=== PATIENT | female | born 1955 | race Caucasian/White ===

== ENCOUNTER 2024-08-06 18:24 | Emergency (ER) | payer MEDICARE, OTHER, SELFPAY ==
[2024-08-06 18:31] VITALS: BP 142/79
[2024-08-06 18:58] LABS: % Basophils 0.4 % (0-2); % Eosinophils 1.1 % (0-6); % Immature Granulocytes 0.2 % (0-0.5); % Lymphocytes 38.3 % (20.5-51.1); % Monocytes 7.7 % (1.7-9.3); % Neutrophils 52.3 % (42.2-75.2); Absolute Eosinophils 0.1 10^3/uL (0-0.7); Absolute Lymphocytes 2.1 10^3/uL (1.2-3.4); Absolute Monocytes 0.4 10^3/uL (0.1-0.6); Absolute Neutrophils 2.9 10^3/uL (1.4-6.5); Hematocrit 33.8 % (37.0-47.0); Hemoglobin 11.7 g/dL (12.0-16.0); Mean Corp Hgb Conc. 34.6 g/dL (33.0-37.0); Mean Corpuscular Hgb 32.6 pg (27.0-31.0); Mean Corpuscular Volume 94.2 fL (81.0-99.0); Mean Platelet Volume 9.8 fL (7.4-10.4); Nucleated Red Blood Cells % 0 %; Platelet Count 273 10^3/uL (130-400); Red Blood Cell Count 3.59 10^6/uL (4.20-5.40); Red Cell Dist. Width 12.7 % (11.5-14.5); White Blood Cell Count 5.5 10^3/uL (4.8-10.8)
[2024-08-06 19:06] LABS: ALT (SGPT) 18 U/L (0-35); AST (SGOT) 40 U/L (14-36); Albumin 4.6 g/dl (3.5-5.0); Alkaline Phosphatase 31 U/L (38-126); Blood Urea Nitrogen 18 mg/dl (7-17); Calcium 9.4 mg/dl (8.4-10.2); Carbon Dioxide 26 mmol/L (22-30); Chloride 107 mmol/L (98-107); Glucose 89 mg/dl (70-99); Potassium 4.3 mmol/L (3.5-5.1); Sodium 139 mmol/L (135-145); Total Bilirubin 0.5 mg/dl (0.2-1.3); Total Protein 7.1 g/dl (6.3-8.2); eGFR > 60.00
[2024-08-06 19:17] LABS: Troponin I < 0.012 ng/ml
[2024-08-06] MEDS: CARAFATE SUSPENSION 1 GM PO (20:51)
[2024-08-06 21:27] LABS: Troponin I < 0.012 ng/ml
[2024-08-06 22:00] VITALS: BP 136/80
--- NOTE | 2024-08-06 22:23 | ED.GENMED ---
History of Present Illness
General
Chief Complaint: Chest Pain
Source: patient and spouse
Time Seen by Provider: 08/06/24 19:56
History of Present Illness
History of Present Illness:
Note:
CHIEF COMPLAINT(S)
Chest pain
HISTORY OF PRESENT ILLNESS
The patient is a 69-year-old female presenting with left-sided chest discomfort that she first noticed upon waking the same day. The pain has been present constantly and does not fluctuate in intensity. She describes associated symptoms of
indigestion, which worsened after lunch, and slight dizziness. The sensation is described as a 'tightness' in the chest, without radiation to the arm. No shortness of breath or nausea and vomiting were reported. She denied any consumption of large
meals, alcohol, or substances that could have precipitated the symptoms. She has not experienced any previous heart problems. The patient reports no history of hypertension, diabetes, or hyperlipidemia and is not currently on any medications.
ADDITIONAL HISTORY OBTAINED FROM SOURCES OTHER THAN THE PATIENT
According to the patient's spouse, there is no history of hypertension, diabetes, or hyperlipidemia.
ALLERGIES
None reported.
PHYSICAL EXAM
- Appearance: Alert and oriented, no acute distress.
- Neck: No jugular venous distension.
- Cardiovascular: Regular heart rate and rhythm, no murmurs, normal heart size.
- Respiratory: No respiratory distress, normal breath sounds.
- Abdomen: Soft, non-tender, no organomegaly.
- Extremities: No edema, warm, and well-perfused.
DIFFERENTIAL DIAGNOSIS
The Differential Diagnosis includes, in no particular order and is not limited to:
- Myocardial infarction
- Unstable angina
- Gastroesophageal reflux disease (GERD)
- Peptic ulcer disease
- Musculoskeletal chest pain
- Anxiety or panic attack
- Aortic dissection
- Pulmonary embolism
- Pneumonia
- Costochondritis
PLAN
- Obtain a repeat troponin level to rule out myocardial infarction due to constant chest pain.
- Order a chest X-ray to evaluate the heart size, aorta, and rule out pulmonary complications.
- Administer an antacid to assess for possible gastrointestinal involvement.
Disposition:
SUMMARY OF ENCOUNTER
The patient is a 69-year-old female presenting with left-sided chest discomfort, described as tightness, along with indigestion and slight dizziness occurring since waking up the same day. Troponin levels were repeated twice and were unremarkable.
The initial EKG was normal without ischemic changes. Laboratory evaluation revealed mild anemia with hemoglobin of 11.7, while the white blood cell count and platelets were normal. Chemistries were normal except for a slightly elevated blood urea
nitrogen to creatinine ratio. The chest X-ray showed a normal aortic silhouette without any findings suggestive of aortic dissection. No pulmonary embolism risk factors were identified, and there was no evidence of hypoxia, tachypnea, or
tachycardia. Given the symptoms of indigestion, a gastrointestinal cause is considered. The patient is assessed as stable for outpatient management and was referred to the outpatient chest pain cardiac hotline for further follow-up.
MEDICATION RECONCILIATION
An antacid was administered to assess for possible gastrointestinal involvement.
MEDICAL DECISION MAKING
1. Number & Complexity of Problems:
Acute chest pain with differential diagnoses considering myocardial infarction, unstable angina, GERD, and other gastrointestinal conditions.
2. Data Reviewed:
- Category 1: Labs (troponin, CBC, CMP) and imaging (EKG, chest X-ray).
- Category 2: Information from the patient indicating no history of hypertension, diabetes, or hyperlipidemia.
3. Risk:
Consideration of admission/observation was made due to the complexity of chest pain, but outpatient management deemed appropriate based on stable vitals, normal troponin, normal EKG, and no evidence of acute myocardial ischemia or other emergent
conditions.
PATHOLOGIES TO CONSIDER
Acute coronary syndrome, myocarditis, gastroesophageal reflux disease (GERD), costochondritis, and pulmonary embolism.
Phy Exam
Physical Exam
Physical Exam:
.
Scores
Heart Score for Chest Pain Patients
STEMI patient?: Not applicable
Course
Orders/Labs/Results
Orders:
Orders
08/06/24 18:29
Electrocardiogram (*1) Urgent
Reason for Study: Chest Pain
EKG- Treatment ONCE
08/06/24 18:43
Complete Blood Count/With Diff Urgent
Comprehensive Metabolic Panel Urgent
Troponin I Urgent
08/06/24 20:48
Sucralfate Suspension [Carafate Suspension] 1 gm PO NOW STA
08/06/24 20:49
CR Chest - 2 Views Urgent
Comment:
Reason For Exam: cp
08/06/24 20:51
Troponin I Urgent
08/06/24 22:21
Electrocardiogram (*1) Urgent
Reason for Study: Chest Pain
EKG- Treatment ONCE
Abnormal Lab Results
08/06/24
18:43
RBC 3.59 L 10^6/uL
(4.20-5.40)
Hgb 11.7 L g/dL
(12.0-16.0)
Hct 33.8 L %
(37.0-47.0)
MCH 32.6 H pg
(27.0-31.0)
BUN 18 H mg/dl
(7-17)
AST 40 H U/L
(14-36)
Alkaline Phosphatase 31 L U/L
(38-126)
08/06/24 18:43
08/06/24 18:43
Vital Signs
Initial and Last Documented VS:
Initial Vital Signs
Temp Pulse Resp BP Pulse Ox
98.5 F 80 16 142/79 99
08/06/24 18:31 08/06/24 18:31 08/06/24 18:31 08/06/24 18:31 08/06/24 18:31
Last Documented Vital Signs
Temp Pulse Resp BP Pulse Ox
98.5 F 77 18 136/80 99
08/06/24 18:31 08/06/24 22:00 08/06/24 22:00 08/06/24 22:00 08/06/24 22:25
*Pulse Oximetry
SaO2: 99
Oxygen Mode of Delivery: Room air
Patient hypoxic: no
*Thermal Cutter Hand Interpretation
Rate: normal
Interpretation: normal
Rhythm: sinus
*Critical Care Note
Total Time (30-74mins, 75-104mins- exclusive of procedures): Not Applicable
ED Attending Note
-
Portions of this chart may have been created with voice recognition software.� Occasional wrong word or��sound alike� substitutions may have occurred due to the inherent limitations of voice recognition software.
Discharge Plan
Departure
Patient Disposition: Home (Routine Discharge)
Date of Disposition: 08/06/24
Time of Disposition: 22:25
Patient with high blood pressure during this ER visit?: No
Discharge Problem:
Chest pain
Instructions: Chest Pain DCA Follow Up
Activity Restrictions/Additional Instructions:
Please take 81 mg of aspirin a day. Please avoid strenuous or exertional activity until cleared by cardiology. Please see cardiology in the next 48 hours for reevaluation. Return immediately for worsening pain, shortness breath, palpitations,
sweating, nausea, weakness of any kind, numbness, tingling or any other concerns.
Cardiology has been notified and a follow up appointment has been requested. Someone will call you on the next business day to schedule a follow up appointment.
Interventions
Interventions:
*Risk Screen - Suicide Last Done: 08/06/24 18:31
*General Assessment Last Done: 08/06/24 22:41
*Neglect/Abuse Screening Last Done: 08/06/24 18:31
*ED- Fall Risk Assessment Last Done: 08/06/24 22:41
*ED COVID-19 Vaccine History Last Done: 08/06/24 22:41
*Nursing Disposition Last Done: 08/06/24 22:41
ED- Cardiac Assessment Last Done: 08/06/24 21:30
Discharge Date and Time
Discharge Date/Time: 08/06/24 22:42
Print Language: THAI
== END 2024-08-06 22:42 | disposition home or self-care (01) ==
LOC: EMR 18:24
PROVIDERS: Emergency Medicine; EMERGENCY PHYSICIAN Emergency Medicine; FAMILY PHYSICIAN Family Medicine
DX: R07.89 Other chest pain (principal)
CPT/HCPCS: 99285; 71046; 80053; 84484; 85025; 93005

== ENCOUNTER → 2024-08-29 10:08 | Outpatient (REF) | payer MEDICARE, OTHER, SELFPAY | LOC: RCS 10:08 | PROVIDERS: ATTENDING PHYSICIAN Internal Medicine Cardiovascular Disease; FAMILY PHYSICIAN Family Medicine | DX: R07.89 Other chest pain (principal) | CPT/HCPCS: 93306 ==

== ENCOUNTER → 2024-09-10 13:28 | Outpatient (REF) | payer MEDICARE, OTHER, SELFPAY | LOC: RCS 13:28 | PROVIDERS: ATTENDING PHYSICIAN Internal Medicine Cardiovascular Disease; FAMILY PHYSICIAN Family Medicine | DX: R07.89 Other chest pain (principal) | CPT/HCPCS: 93017; 93350 ==